=== PATIENT | male | born 1990 | race Two or more races ===

== ENCOUNTER 2023-01-14 14:10 | Emergency (ER) | payer OTHER ==
[2023-01-14 14:16] VITALS: BP 158/82; PULSE 79; RESP 16; TEMP 98.3; BMI 39.1
[2023-01-14] MEDS ORDERED: CEPHALEXIN MONOHYDRATE 500 MG CAPSULE (UD) PO ONE (15:10)
[2023-01-14] MEDS ORDERED: CEPHALEXIN MONOHYDRATE 500 MG CAPSULE (UD) ONE (15:13)
== END 2023-01-14 15:19 | disposition home or self-care (01) ==
LOC: FER 14:10
DX: L03.114 Cellulitis of left upper limb (principal)
CPT/HCPCS: 99283-25